=== PATIENT | male | born 1965 | race Caucasian/White ===

== ENCOUNTER → 2017-08-22 | Outpatient (CLI) | payer BC ==
[2017-08-22 15:03] LABS: CHOLESTEROL/HDL RATIO 2.8
== END | disposition home or self-care (01) ==
LOC: C.LABMFLN 08:44
PROVIDERS: ATTEND Family Medicine
DX: Z00.00 Encounter for general adult medical examination without abnormal findings (principal); Z29.9 Encounter for prophylactic measures, unspecified

== ENCOUNTER → 2018-06-07 | Outpatient (CLI) | payer BC ==
--- NOTE | 2018-06-07 14:46 | DIAGNOSTIC IMAGING REPORT ---
KUB HISTORY: Follow-up study in a patient with history of kidney stones N20.0 COMPARISON: None. FINDINGS: The bowel gas pattern is non-obstructive. There is no organomegaly. There are punctate calculi about the bilateral kidneys measuring up to 3 mm on the right. No ureteral calculi identified. Phleboliths of the pelvis. Pneumoperitoneum or pneumatosis. No fracture. IMPRESSION: Nonobstructing bilateral nephrolithiasis without ureteral calculi identified. Electronically signed by: Bill Lopez M.D. 06/07/2018 2:44 PM Dictated Date/Time: 06/07/2018 2:27 PM
== END | disposition home or self-care (01) ==
LOC: C.RAD 13:55
PROVIDERS: ATTEND Urology
DX: N20.0 Calculus of kidney (principal)